=== PATIENT | female | born 1960 | race Caucasian/White ===

== ENCOUNTER 2018-10-27 15:36 | Emergency (ER) | payer OTHER ==
[~2018-10-27] VITALS: Ht 167.6 cm; Wt 81.7 kg
[2018-10-27] MEDS ORDERED: LAMICTAL150 MG PO (15:53)
[2018-10-27] MEDS ORDERED: BENADRYL25 MG PO (15:54)
[2018-10-27] MEDS ORDERED: ATIVAN1 MG PO (15:54)
== END 2018-10-27 17:47 | disposition home or self-care (01) ==
LOC: ED 15:36
DX: S63.601A Unspecified sprain of right thumb, initial encounter (principal); F31.9 Bipolar disorder, unspecified; Z87.891 Personal history of nicotine dependence; Z90.710 Acquired absence of both cervix and uterus; Z79.899 Other long term (current) drug therapy; W45.8XXA Other foreign body or object entering through skin, initial encounter
CPT/HCPCS: 99283